=== PATIENT | male | born 1965 | race Caucasian/White ===

== ENCOUNTER → 2016-11-24 | Outpatient (CLI) | payer OTHER ==
[~2016-11-24] MED LIST: ATOR-22 PO
--- NOTE | 2016-11-25 08:09 | PAP/PSG TECHNICIAN REPORT ---
[facility] Manager Internship Polysomnogram Report Study name: None Report date: 11/25/2016 Study date: 11/24/2016 Referring Physician: DR. MARQUES VAUGHN Name: GROVER ELLER Interpreting Physician: Lino Jernigan D.O. Date of : 1965 Manager Internship: Christina Hooker, PSGT. Sex: Male Age: 51 StudyType: PSG Weight: 210 lbs Height: 51 years, Height 5' 10" BMI: 30.13 Medications: Atrovastatin 20 mg, Multi Complete Oral. Patient History 51 yr. old, male in room 7, presents to the sleep lab for a diagnostic c-pap titration. Pt. has used c-pap for several years and wants to make sure his pressure is correct. Parameters Monitored NPSG: E1-M2, E2-M1, Fp1-M2, Fp2-M1, F3-M2, F4-M2, F4-M1, C3-M2, C4-M2, C4-M1, O1-M2, O2-M2, O2-M1, T3-M2, T4-M1, P3-M2, P4-M1, CHIN1, CHIN2, HR, EKG, Legs, PFLOW, SNOR, FLOW, CFLOW, Tidal Volume, THOR, ABDO, SpO2, PLTH, CPRESS, ETCO2 Wave, ETCO2, pH Sleep Architecture Sleep Stages Time at Lights Off 10:46:58 PM STAGES Time (min.) TST (%) Time at Lights On 5:24:58 AM Wake 65.5 -- Total Recording Time (TRT) 399.50 min. N1 23.0 7 Total Sleep Period (TSP) 376.5 min. N2 227.5 68 Total Sleep Time (TST) 332.5min. N3 0.0 0 Awake Time 65.5 min. REM 82.0 25 Wake after Sleep Onset 44.0 min. Sleep Efficiency (SE) 84 % Sleep Onset Latency (SHANNON) 21.5 min. Number of Stage 1 Shifts None Awakenings 8 Stage Changes 35 Number of REM periods 7 REM 82.0 25 REM Latency 76.5 min. NREM 250.5 75 Body Position Analysis Supine Right Left Side Prone Vertical Total Sleep Time (min.) 90.4 130.2 112.7 242.92 0.0 0.0 Total Sleep Time (%) 27% 39% 34% 73 0% N/A% Total Sleep Time REM (min.) 15.6 49.0 17.4 None 0.0 0.0 Total Sleep Time NREM (min.) 74.0 81.2 95.3 None 0.0 0.0 Intermittent Wake (min.) 0.9 19.4 45.2 None 0.0 0.0 Total Sleep Period (%) 24% None None None None None Arousals Myoclonus (PLM) * Events Count Index Events Count Index Spontaneous 35 6 Events Awake (PLMW) 4 3.7 Respiratory 1 0.2 Events Asleep w/ Arousal (PLMA) 9 1.6 PLM 9 2 Events Asleep w/o Arousal (PLMS) 165 29.8 Snoring 2 0 Total Asleep 174 31.4 Total 47 8 Total 178 27 Respiratory Analysis * CA OA MA CH H RERA Total Count 1 0 0 0 6 0 7 Index 0.2 0.0 0.0 0 1.1 0 1.3 Mean Duration 24.3 0.0 0.0 0.00 18.8 0.0 19.6 Longest Duration 24.3 0.0 0.0 0.00 0.0 0.0 29.2 Respiratory Event Summary Total Supine ~Supine Right Left Prone REM NREM Apneas Count 1 0 1 0 1 N/A 0 1 Index 0.2 0 0 0.0 0.5 N/A 0 0 Hypopneas (4% Desat) Count 6 2 4 0 4 N/A 1 5 Index 1.1 1.3 1 0.0 2.1 N/A 0.7 1.2 Apneas & All Hypopneas Count 7 2 5 0 5 N/A 1 6 Index 1.3 1 1 0 3 N/A 0.7 1.4 Respiratory Events (Clipper Machine Operator+All Hyp+RERA) Count 7 2 5 0 5 N/A 1 6 Index 1.3 1 1 0.0 2.7 N/A 0.7 1.4 Respiratory Related Arousal Count 1 2 0 0 0 N/A 0 1 Index 0.2 1 0 0 0 N/A 0 0 Snoring Analysis Supine Right Left Prone REM NREM Total Snore duration 6.5 min Snores count 171 23 25 N/A 18 201 219 Snore mean duration 1.8 Sec Snores index 115 11 13 N/A 13.2 48.1 39.5 TST with snoring (%) 1.9% Desaturation Event Summary: Minimum %SpO2 Event Count Mean/Min/Max Duration(sec.) Desaturation Index % Time In Bed > 90 8 22.4 / 5.5 / 58.3 1.2 98.7 86 - 90 1 55.3 / 55.3 / 55.3 11.6 1.3 81 - 85 0 N/A 0.0 0.0 76 - 80 0 N/A 0.0 0.0 71 - 75 0 N/A 0.0 0.0 66 - 70 0 N/A 0.0 0.0 61 - 65 0 N/A 0.0 0.0 56 - 60 0 N/A 0.0 0.0 51 - 55 0 N/A 0.0 0.0 < 50 0 N/A 0.0 0.0 Total REM NREM Awake <50% 0.0 min. 0.0 min. 0.0 min. 0.0 min. 51 - 60% 0.0 min. 0.0 min. 0.0 min. 0.0 min. 61 - 70% 0.0 min. 0.0 min. 0.0 min. 0.0 min. 71 - 80% 0.0 min. 0.0 min. 0.0 min. 0.0 min. 81 - 90% 5.2 min. 0.2 min. 3.9 min. 1.2 min. 91 - 100% 392.4 min. 81.8 min. 246.5 min. 64.0 min. Average 94 95 93 94 Minimum SpO2 85 90 85 88 Desaturation Event Index 1.4 1.5 1.7 0.0 # Desat. Events below 89% 1 N/A 1 N/A Time(%) with Saturation below 89% 0.3 0.0 0.2 0.1 Time(min.) with Saturation below 89% 1.0 0.0 0.8 0.2 Time (mins) REM (mins) NREM (mins) % of TST SpO2 Below 90% 4 1 N3 0.4 SpO2 Below 88% 1 0 0 0 Heart Rate Analysis Min (bpm) Max (bpm) Average (bpm) Awake 58 98 71 NREM 57 92 68 REM 58 104 71 Overall 57 104 69 Supplemental O2 Values Minimum O2 level: None Value Start Time End Time Manager Internship Comments PAP Study: Mr. Eller slept in the right, left, and supine positions. No cardiac arrhythmia or PLM's noted. No bruxism noted. CPAP was initiated at +8 CMH2O and up-titrated to an optimal level of +12 CMH2O, which nearly eliminated all respiratory events and snoring. Pt. brought his own F & P mask. Was used for titration. Mr. Eller awoke to use the restroom zero times during the night. stated, I did not sleep as well as I do when I am in my own bed. The final report will be interpreted and signed by a sleep physician. The completed physician report will then be placed in the patient medical record. Pt. slept pretty well, tolerated treatment and mask well. Pt. has been on 12 cm for many years wanted sleep study to make sure his pressure was correct. Study was started at 8 cm and increases were made for respiratory and snoring events. Therapy Event: Therapy (cm H20) 0 8 10 12 Total Time at Pressure (min.) 0.3 144.1 42.4 211.2 TST at Pressure (min.) 0.0 92.9 42.4 197.2 # Periods 1 1 1 1 Sleep Onset (min.) N/A 21.2 0.0 0.0 REM Onset (min.) N/A 97.7 N/A 2.7 Sleep Efficiency % 0 64 100 93 Wakefulness (%) 100.0 35.5 0.0 6.6 Wakefulness (min.) 0.3 51.2 0.0 14.0 NREM 1 (%) 0.0 6.2 0.0 6.6 NREM 1 (min.) 0.0 9.0 0.0 14.0 NREM 2 (%) 0.0 50.9 100.0 52.9 NREM 2 (min.) 0.0 73.4 42.4 111.7 NREM 3 (%) 0.0 0.0 0.0 0.0 NREM 3 (min.) 0.0 0.0 0.0 0.0 REM (%) 0.0 7.3 0.0 33.9 REM (min.) 0.0 10.5 0.0 71.5 # Arousals N/A 16 5 26 Arousal Index N/A 10.3 7.1 7.9 # Snore N/A 120 55 44 Snore Index N/A 77.5 77.9 13.4 AHI N/A 1.3 0.0 1.5 AHI Supine N/A 3.8 0.0 0.0 AHI Non-Supine N/A 0.0 N/A 1.7 NREM AHI N/A 1.5 0.0 1.9 REM AHI N/A 0.0 N/A 0.8 RDI N/A 1.3 0.0 1.5 # Obstructive N/A 0 0 0 # Central Ap N/A 0 0 1 # Mixed N/A 0 0 0 # Hypopneas N/A 2 0 4 RERAS N/A 0 0 0 Total Respiratory Events N/A 2 0 5 Time Below SpO2 89.00% (min.) 0.0 0.8 0.0 0.0 Mean NREM SpO2 (%) N/A 92 92 95 Mean REM SpO2 (%) N/A 93 N/A 95 Mean Sleep SpO2 (%) N/A 93 92 95 Min NREM SpO2 (%) N/A 85 90 90 Min REM SpO2 (%) N/A 91 N/A 90 Position Supine (min.) 0.0 31.4 42.4 15.8 Position Non-supine (min.) 0.0 61.5 0.0 181.4 LM Index Sleep N/A 40.7 58.0 21.3 LM Index NREM N/A 43.0 58.0 14.8 LM Index REM N/A 22.9 N/A 32.7 Mean Heart Rate (bpm) N/A 71 69 67 Min Heart Rate (bpm) N/A 61 62 57
--- NOTE | 2016-11-28 14:53 | POLYSOMNOGRAPH REPORT ---
CLINICAL DATA: The patient is referred for a CPAP re-titration. He has been on CPAP for many years. Initially he had severe apnea with an apnea hypopnea index of 42.7. His most recent CPAP titration was 10/21/2007 with a reported pressure setting of 13 cm. The patient reportedly is on 12 cm at present. His BMI is 30.13. This was an in-lab CPAP titration. SLEEP ARCHITECTURE: The total sleep period was 376.5 minutes with a total sleep time of 332.5 minutes. The sleep efficiency was mildly reduced at 84%. The sleep onset latency was top normal at 21.5 minutes. The wake after sleep onset was 44 minutes. The REM latency was normal at 76.5 minutes. Sleep consisted of stage N1 7%, stage N2 68%, stage N3 zero, stage REM 25%. AROUSAL DATA: The patient had a total of 47 arousals including 35 spontaneous arousals, 1 respiratory arousal, 9 PLM arousals, and 2 snoring arousals. The arousal index was 8. PLM DATA: The patient had a total of 174 periodic limb movements of sleep for an index of 31.4. There were 9 limb movements with arousals for a PLM arousal index of 1.6. EKG: The underlying cardiac rhythm was normal sinus. The cardiac rates ranged from 58-104 beats per minute. The average heart rate was 71 beats per minute. During Epoch 409, the patient had a 6-beat run of extrasystoles. It was unclear if this was SVT or VT. This did occur during REM sleep. Otherwise, he had normal sinus rhythm. RESPIRATORY DATA: The patient's nocturnal events were treated with nasal CPAP. For the night he had 1 central apnea and 6 hypopneas. The 4% rule was utilized for scoring hypopneas. The apnea hypopnea index was normal at 1.3 events per hour. The apnea was 24.3 seconds. The mean hypopnea was 18.8 seconds. OXIMETRY DATA: The average saturation for the night was 94%. The minimum saturation was 85% and this was very transient. He had a total of 1 minute with saturations less than 89%. CERTIFIED ENDOSCOPY TECHNICIAN'S COMMENTS: The patient slept in the right, left, and supine positions. No bruxism was noted. CPAP was initiated at 8 cm and up-titrated to an optimal level of 12 cm which nearly eliminated all respiratory events and snoring. The patient used his own Lutz and Paykel mask. IMPRESSION: 1. Obstructive sleep apnea -- well treated with nasal CPAP at 12 cm. 2. Periodic limb movement disorder. 3. Cardiac arrhythmia. COMMENTS: The patient was titrated up to his final pressure of 12 cm which is reportedly what he is already utilizing at home. For the most part, his sleep was well consolidated especially after the first hour. He did have a modest number of limb movements. There were relatively few arousals associated with the limb movements. His oxygenation was essentially normal. He did have one 6 beat burst of arrhythmia. It could not be determined if this was SVT or ventricular tachycardia. Clinical correlation is advised with regard to his cardiac status. RECOMMENDATIONS: 1. It is advised that the patient continue with his nasal CPAP at 12 cm. 2. He has an elevation of body mass index at 30.13. Weight reduction is advised as even mild weight reduction may result in improvement in sleep disordered breathing. 3. If possible patient should avoid sleeping in the supine position. 4. Consideration is given to Holter monitor if clinically indicated. [facility]
== END | disposition home or self-care (01) ==
LOC: C.NEUR 21:00
PROVIDERS: ATTEND Internal Medicine Critical Care Medicine
DX: G47.30 Sleep apnea, unspecified (principal)

== ENCOUNTER 2021-11-18 10:34 | Inpatient (IN) ==
--- NOTE | 2021-10-30 15:17 | PAT Medication Instructions ---
Medication Instructions Date of Service October 30, 2021 Home Medications multivitamin (Daily Multi-Vitamin) 1 tab PO DAILY atorvastatin 10 mg tablet 10 mg PO HS DO NOT take the morning of surgery multivitamin (Daily Multi-Vitamin) 1 tab PO DAILY Take evening before surgery atorvastatin 10 mg tablet 10 mg PO HS OTHERWISE NOTHING TO EAT OR DRINK AFTER MIDNIGHT Other Notes If you have any questions please call us at [phone] or [phone] or [phone] or [phone]
--- NOTE | 2021-11-04 13:37 | Anesthesiology Consultation ---
Date of Service November 04, 2021 Assessment & Plan (1) Encounter for pre-operative examination: COVID screening: Per assessment on 11/04: No known COVID-19 positive contacts or current COVID-19 related symptoms. Travel screen negative. Patient vaccinated. Surgeon arranging preop COVID testing. Awaiting results. Chart Review Chart Review: Acceptable Risk for Surgery and Patient seen in Pre Admission Testing Teaching & Discussion Pre-Anesthesia Teaching/Discussion Notes: Instructed NPO after midnight before surgery,except medications with 15 cc of water. Medication instructions pro vided according to the PAT guidelines. History Surgery Operation Date: 11/18/21 10:05 Proposed Procedures p L4-S1 Decompression Fusion, Spinal Cord Monitoring - Ghassan Erickson, Height/Weight Height: 5 ft 10.5 in Weight: 105.1 kg Allergies Allergy/AdvReac Type Severity Reaction Status Date / Time No Known Allergies Allergy Unknown Verified 10/30/21 14:05 Medications Home Medications Medication Instructions Recorded Confirmed Last Taken multivitamin (Daily Multi-Vitamin) 1 tab PO DAILY 09/03/20 10/30/21 Unknown atorvastatin 10 mg tablet 10 mg PO HS 10/30/21 10/30/21 Unknown Past Medical History Medical History Degenerative disc disease Hyperlipidemia Obesity Sleep apnea CPAP (compliant) Spinal stenosis Exercise / Class Metabolic Activity II 4-5 Yardwork/Stairs/Walk up hill (one FS (no CP, no SOB)) Past Family History Family History Other No family history of adverse response to anesthesia Past Surgical History Surgical History H/O elbow surgery RT H/O lumbar discectomy L4-5 H/O sinus surgery History of colonoscopy History of inguinal hernia repair, bilateral History of tooth extraction Nausea and vomiting after administration of anesthetic agent Past Anesthesia History No Hx of Anesthesia Complications (except post-op nausea) and No Family Hx of Anesthesia Complications History of PONV No Hx of Motion Sickness and History of PONV (post-op nausea) Social History Smoking Status: Never smoker Do You Dip or Chew Tobacco: No Hx Alcohol Use: No Hx Substance Use: No substance use type: does not use Review of Systems Patient denies chest pain, shortness of breath, dyspnea on exertion, fever, chills, cough, wheezing, palpitations. Physical Exam Vital Signs VITALS BP 121/73 P 90 TEMP 98.7 SP02 97%RA RESP 16 PHYSICAL Full cervical extension range of motion. Full TMJ range of motion. TMD 3 finger breaths Mallampati Score 1 Dentition: missing molar Lungs: clear throughout to auscultation Cardiac: regular rate and rhythm, no murmurs noted Spine: normal Carotid arteries: negative bruit Extremities: no edema Lab Results Anesthesia Preop Results Results Anesthesia Widget: WBC 6.67 K/uL (4.8-10.8) 11/04/21 Hgb 15.1 g/dL (14.0-18.0) 11/04/21 Hct 43.7 % (42-52) 11/04/21 Plt 226 K/uL (130-400) 11/04/21 Na 141 mmol/L (136-145) 11/04/21 K 3.9 mmol/L (3.5-5.1) 11/04/21 Cl 106 mmol/L (98-107) 11/04/21 CO2 29 mmol/L (21-32) 11/04/21 BUN 19 mg/dl (6-23) 11/04/21 Creat 0.91 mg/dl (0.6-1.4) 11/04/21 Glucose Level 95 mg/dl (70-99(Fasting)) 11/04/21 PT 10.8 Seconds (9.0-12.0) 11/04/21 PTT 26.8 Seconds (21.0-31.0) 11/04/21 INR 1.0 (0.9-1.1) 11/04/21 Urine Color Yellow 11/04/21 Urine Appearance Clear (Clear) 11/04/21 Urine pH 5.0 (4.5-7.5) 11/04/21 Urine Specific [place] 1.026 (1.000-1.030) 11/04/21 Urine Protein Negative (Negative) 11/04/21 Urine Glucose (UA) Negative (Negative) 11/04/21 Urine Ketones Trace (Negative) H 11/04/21 Urine Blood Negative (Negative) 11/04/21 Urine Nitrite Negative (Negative) 11/04/21 Urine Bilirubin Negative (Negative) 11/04/21 Urine Urobilinogen Negative (Negative) 11/04/21 Urine Leukocyte Esterase Negative (Negative) 11/04/21 Blood Type A Positive 11/04/21 Antibody Screen NEGATIVE 11/04/21 Testing Electrocardiogram Date: 11/04/21 NSR at 73bpm. unconfirmed report. Chest X-Ray Date: 11/04/21 FINDINGS: PA and lateral chest radiographs are obtained. No prior studies are available for comparison at the time of dictation. The cardiomediastinal silhouette is unremarkable. There is bibasilar atelectasis. The lungs and pleural spaces are otherwise clear. There is no pneumothorax. The bony thorax appears intact. IMPRESSION: No active disease in the chest.
[~2021-11-18 10:34] MED LIST changes: +ACETAMINOPHEN 500 MG TAB PO SCH; -ATOR-22 PO; +CeleBREX 200 MG CAP PO SCH; +GABAPENTIN 600 MG DOSE PO SCH; +LR 15ML/HR IV SCH; +ceFAZolin 2000MG 2,000 MG/15 ML SYR IV SCH
[2021-11-18] MEDS ORDERED: fentaNYL citrate 100 MCG/2 ML VIAL ONE (10:45)
[2021-11-18] MEDS ORDERED: MIDAZOLAM HCL 1 MG/ML 2ML VIAL ONE (10:45)
[2021-11-18] MEDS ORDERED: HYDROmorphone INJ 2 MG/ML SYR/VIAL IV PRN (11:44)
[2021-11-18] MEDS ORDERED: ATROPINE SULFATE 0.1 MG/ML 10ML SYR IV PRN (11:44)
[2021-11-18] MEDS ORDERED: ePHEDrine sulfate 50 MG/ML AMP IV PRN (11:44)
[2021-11-18] MEDS ORDERED: ONDANSETRON INJ 2 MG/ML 2 ML VIAL IV PRN ×2 (11:44→19:50)
--- NOTE | 2021-11-18 11:46 | History & Physical Bridge Note ---
Date of Service November 18, 2021 History & Physical Bridge Note I have examined the patient, reviewed the History & Physical and in the interval since the performance of the History & Physical I have noted the following changes of clinical significance: no changes noted
--- NOTE | 2021-11-18 11:47 | History & Physical Report ---
Date of Service November 18, 2021 Assessment & Plan (1) Neurogenic claudication due to lumbar spinal stenosis: Plan: L4-S1 decompression and fusion History of Present Illness Chief Complaint: Back and leg pain Primary Care Provider: Inder Newell DO This is a 56-year-old male who presents with a history of chronic persistent back and leg pain that is progressively worsened. The failing since course of nonoperative care is here for surgical invention. Allergies Allergy/AdvReac Type Severity Reaction Status Date / Time No Known Allergies Allergy Unknown Verified 11/18/21 10:52 Home Medications Medication Instructions Recorded Confirmed Type multivitamin (Daily Multi-Vitamin) 1 tab PO DAILY 09/03/20 11/18/21 History atorvastatin 10 mg tablet 10 mg PO HS 10/30/21 11/18/21 History ibuprofen 200 mg tablet 800 mg PO Q6H PRN 11/18/21 11/18/21 History Past Med/Surg History Medical History Degenerative disc disease Hyperlipidemia Obesity Sleep apnea CPAP (compliant) Spinal stenosis Surgical History H/O elbow surgery RT H/O lumbar discectomy L4-5 H/O sinus surgery History of colonoscopy History of inguinal hernia repair, bilateral History of tooth extraction Nausea and vomiting after administration of anesthetic agent Family History Other No family history of adverse response to anesthesia Social History Smoking Status: Never smoker Second Hand Exposure: Yes ( A CHILD); Do You Dip or Chew Tobacco: No; Hx Alcohol Use: No Hx Substance Use: No Preferred Language: Surinamese Water Softener Servicer And Installer Required: No Beliefs That Will Affect Care: None Current Living Situation: Family Feels Safe at Home: Yes Safety Concerns: Feels Safe At This Time Assistive Devices: CPAP and Glasses Physical Exam Physical Exam: Patient is alert and oriented Heart regular in rhythm Lungs clear Results & Data Results & Data ([facility]) Vital Signs (Past 12 Hours) Vital Signs Temp Pulse Resp BP Pulse Ox 11/18/21 10:56 36.9 C 78 18 137/87 96
[2021-11-18] MEDS ORDERED: BUPIVACAINE/EPINEPHRINE 0.25% 1:200,000 30 ML VIAL ONE (12:04)
[2021-11-18] MEDS ORDERED: ceFAZolin 330 MG/ML 1 GM VIAL ONE (12:04)
[2021-11-18] MEDS ORDERED: SCOPOLAMINE 1 MG TDSY TD ONE (12:21)
[2021-11-18] MEDS ORDERED: FAMOTIDINE/PF 20 MG/2 ML VIAL IV ONE (12:43)
[2021-11-18] MEDS ORDERED: HYDROmorphone INJ 2 MG/ML SYR/VIAL ONE (12:47)
[2021-11-18] MEDS ORDERED: KETAMINE 50 MG/5 ML SYRINGE ONE (12:50)
[2021-11-18] MEDS ORDERED: FLOSEAL HEMOSTATIC MATRIX 10ML TOP ONE (13:03)
[2021-11-18] MEDS ORDERED: ONDANSETRON INJ 2 MG/ML 2 ML VIAL ONE (13:41)
[2021-11-18] MEDS ORDERED: diphenhydrAMINE 50 MG/ML VIAL ONE (13:41)
[2021-11-18] MEDS ORDERED: DEXAMETHASONE SOD INJ 4 MG/ML VIAL ONE (13:41)
[2021-11-18] MEDS ORDERED: METOCLOPRAMIDE HCL INJ 5 MG/ML 2 ML VIAL ONE (13:41)
[2021-11-18] MEDS ORDERED: LARYING-O-JET KIT (LTA) ONE (13:41)
[2021-11-18] MEDS ORDERED: GLYCOPYRROLATE 0.2 MG/ML VIAL ONE (13:41)
[2021-11-18] MEDS ORDERED: PROPOFOL IV EMULSION 10 MG/ML 20 ML VIAL IV ONE (13:41)
[2021-11-18] MEDS ORDERED: NEOSTIGMINE METHYLSULFATE 1 MG/ML 10ML VIAL ONE (13:41)
[2021-11-18] MEDS ORDERED: LIDOCAINE 2% 2 ML VIAL/AMP(20MG/ML) INFIL ONE (13:41)
[2021-11-18] MEDS ORDERED: SUGAMMADEX SODIUM 200 MG/2 ML VIAL IV ONE (14:56)
--- NOTE | 2021-11-18 15:04 | Operative Report ---
Post Operative Report Pre & Post Diagnosis Operation Date: 11/18/21 12:15 Pre-Op Diagnosis: (1) Neurogenic claudication due to lumbar spinal stenosis Post-Op Diagnosis: (1) Neurogenic claudication due to lumbar spinal stenosis I identified the patient and participated in the time-out.: Yes Procedure Operation Date: 11/18/21 12:15 Actual Procedures #1 revision decompression with bilateral medial facetectomies and foraminotomies L3-L4 L4-5 L5-S1. #2 posterior spinal fusion L4-L5 L5-S1. #3 placement posterior instrumentation L4-L5 L5-S1. #4 interbody fusion L4-L5 L5-S1. #5 placement of Spira 11 x 26 mm cage at L4-5 and 12 x 26 mm cage L5-S1. #6 placement locally harvested morselized autograft in the posterior gutters. #7 placement of I factor combined with V toss in the posterior lateral gutters and interbody space. Surgeon Ghassan Erickson, Movie Critic Nahomi Hernandez Estimated Blood Loss 400 Findings Consistent with Post-Op Diagnosis The patient is 5 foot 10 inches tall weighing over 106 kg with a BMI in excess of 33. The patient's body habitus did contribute to significant technical difficulty required deepest retractors and longer instruments in order to perform his procedure. This at least 50% increased operative time. Specimens None Indications This is a 56-year-old male who presents with significant decline in status with significant back and worsening leg pain after failing course of nonoperative care is here for surgical invention. Description of Procedure Patient was met with identified informed consent obtained. Patient was then taken to the operative suite underwent a patient placed in a prone position the [place] table top Román frame. All bony prominences well-padded eyes inspected to ensure no external pressure placed upon them. This point the lumbar spine was prepped and draped in a sterile fashion. Sharp dissection with assistance pericardial form down to and exposing very remaining lamina and transverse processes of L4-5 and sacral ala bilaterally. From caudal cephalad fashion revision complete laminectomy of all 5 L4 and partial laminectomy L3 was performed including medial facetectomies and foraminotomies addressing severe spinal stenosis. Pedicle screws were then placed in L4-L5 and S1 levels bilaterally with assistance of fluoroscopy the proper sized raimundo placed. By way of a transit foraminal approach on the right complete discectomy of L5-S1 was performed endplates curetted to subcortical bleeding bone and a 12 x 26 mm Spira cage filled I factor tapped in position. Then proceeded to L 4 L5 and again by way of a transit foraminal approach and right complete discectomy was performed endplates curetted to subcortical being bone and the 11 x 26 mm spiral cage filled with I factor tapped in position. Rods were then locked in final position bilaterally. The transverse processes of L4-L5 and sacral ala burred to subcortical bleeding bone. I factor model V toss and locally harvested morselized autograft was placed in the posterior gutters. 15 round LUZ drain inserted. The incision was then closed with 1 Vicryl the fascia 2-0 Vicryl subcutaneously and 4 Monocryl for final skin closure. Steri-Strip sterile dressings placed. Patient waken taken PACU stable condition. Please note spinal cord monitoring was utilized at the procedure no changes noted. Lastly Nahomi Hernandez was present out the entire surgery and while the patient positioning complex portions of the surgery and final skin closure. I attest to the content of the Intraoperative Record and any orders documented therein. Any exceptions are noted below.
--- NOTE | 2021-11-18 15:11 | Fluoroscopy Report ---
FL lumbar spine 2-3V CLINICAL HISTORY: L4-S1 DECOMPRESSION AND FUSION TECHNIQUE: 2 views were obtained with the C-arm in the OR with the above procedure. Total fluoroscopy time was 30.3 seconds. Total skin dose was 23.4 mGy. Comparison: None available at the time of this dictation. FINDINGS/IMPRESSION: Intraoperative images were obtained of L4-S1 decompression and fusion. Please correlate with intraoperative fluoroscopy and operative report. ACT 112: Negative or not required by law. Electronically signed by: Justin Wilson M.D. 11/18/2021 3:10 PM
[2021-11-18] MEDS: fentaNYL citrate 100 MCG/2 ML VIAL IV PRN ×3 (15:44→16:36)
--- NOTE | 2021-11-18 16:22 | Anesthesiology Progress Note ---
Date of Service November 18, 2021 Anesthesia Post Procedure Vital Signs Vital Signs: Temp Pulse Pulse Resp BP Pulse Ox 11/18/21 16:15 83 16 152/92 H 93 11/18/21 16:05 81 19 155/91 H 96 11/18/21 15:55 79 13 164/97 H 97 11/18/21 15:45 81 13 144/92 H 96 11/18/21 15:35 79 14 127/89 96 11/18/21 15:25 85 13 154/98 H 95 11/18/21 15:19 97.2 F L 86 15 141/101 H 96 11/18/21 10:56 98.4 F 78 18 137/87 96 Pain Intensity Back: Pain Intensity: 6 Transfer of Care Handoff Completed per policy Notes Mental Status: alert / awake / arousable and participated in evaluation Patient Amnestic to Procedure: Yes Nausea / Vomiting: adequately controlled Pain: adequately controlled Airway Patency, RR, SpO2: stable & adequate BP & HR: stable & adequate Hydration State: stable & adequate Anesthetic Complications: no major complications apparent and Pt Satisfied with anesthetic care
[2021-11-18] MEDS ORDERED: ALUMINUM/MAGNESIUM SUSP 30 ML UDC PO PRN (19:50)
[2021-11-18] MEDS ORDERED: LORazepam 0.5 MG TAB PO PRN (19:50)
[2021-11-18] MEDS ORDERED: SOD PHOSPHATE/SOD BIPHOSPHATE ENEMA 132 ML BTL PR PRN (19:50)
[2021-11-18] MEDS ORDERED: HYDROmorphone INJ 1 MG/ML SYRINGE IV PRN (19:50)
[2021-11-18] MEDS ORDERED: PROMETHAZINE HCL 12.5 MG in SODIUM CHLORIDE 0.9% 50 ML IV PRN (19:50)
[2021-11-18] MEDS ORDERED: ACETAMINOPHEN 1,000 MG/100 ML VIAL IV PRN (19:50)
[2021-11-18] MEDS ORDERED: LORazepam 2 MG/1 ML VIAL IV PRN (19:50)
[2021-11-18] MEDS ORDERED: ONDANSETRON 4 MG OD TAB PO PRN (19:50)
[2021-11-18] MEDS ORDERED: traMADol HCL 50 MG TABLET PO PRN (19:50)
[2021-11-18] MEDS ORDERED: MAGNESIUM HYDROXIDE SUSP 30 ML UDC PO PRN (19:50)
[2021-11-18] MEDS ORDERED: diphenhydrAMINE Capsule 25 MG CAP PO PRN (19:50)
[2021-11-18] MEDS ORDERED: FAMOTIDINE 20 MG TAB PO PRN (19:50)
[2021-11-18] MEDS ORDERED: DO NOT ADMINISTER PNEUMOCOCCAL VACCINE PRN (19:50)
[2021-11-18] MEDS ORDERED: hydrOXYzine HCl 25 MG TAB PO PRN (19:50)
[2021-11-18] MEDS ORDERED: DO NOT ADMINISTER FLU VACCINE PRN (19:50)
[2021-11-18] MEDS ORDERED: NALOXONE HCL 0.4 MG/1 ML VIAL/CARP IV PRN (19:50)
[2021-11-18] MEDS ORDERED: bisacodyL 10 MG SUPP PR PRN (19:50)
[2021-11-18] MEDS ORDERED: ACETAMINOPHEN 500 MG TAB PO PRN (19:50)
[2021-11-18] MEDS ORDERED: LACTATED RINGER'S 1,000 ML IV SCH (19:50)
[2021-11-18] MEDS ORDERED: HYDROmorphone INJ 0.5 MG/0.5 ML SYR IV PRN (19:50)
[2021-11-18] MEDS ORDERED: METOCLOPRAMIDE HCL INJ 5 MG/ML 2 ML VIAL IV PRN (19:50)
[2021-11-18] MEDS: ceFAZolin 2000MG 2,000 MG/15 ML SYR IV SCH (22:00)
[2021-11-18] MEDS: oxyCODONE HCL IR 5 MG TAB (IMMEDIATE RELEASE) PO PRN (22:00)
[2021-11-18] MEDS: ATORVASTATIN 10 MG TAB PO SCH (22:00)
[2021-11-18] MEDS: DOCUSATE SODIUM/SENNA 50/8.6MG TAB PO SCH (22:01)
[2021-11-19] MEDS: ceFAZolin 2000MG 2,000 MG/15 ML SYR IV SCH (05:21)
[2021-11-19] MEDS: POLYETHYLENE (MIRALAX) 17 GM PACK PO SCH ×4 (05:21→23:53)
[2021-11-19] MEDS: oxyCODONE HCL IR 5 MG TAB (IMMEDIATE RELEASE) PO PRN ×5 (05:30→23:53)
[2021-11-19 06:17] LABS: Basophils # (auto) 0.02 K/uL (0-0.2); Basophils % (auto) 0.1 %; Eosinophils # (auto) 0.01 K/uL (0-0.5); Eosinophils % (auto) 0.1 %; Hemoglobin 13.4 g/dL (14.0-18.0); Immature Granulocytes # (auto) 0.04 K/uL (0.00-0.02); Immature Granulocytes % (auto) 0.3 %; Lymphocytes # (auto) 0.76 K/uL (1.2-3.4); Lymphocytes % (auto) 5.4 %; Mean Corpuscular Hemoglobin 30.5 pg (25-34); Mean Corpuscular Hgb Conc 35.3 g/dL (32-36); Mean Corpuscular Volume 86.6 fL (80-100); Mean Platelet Volume 10.1 fL (7.4-10.4); Monocytes # (auto) 0.66 K/uL (0.11-0.59); Monocytes % (auto) 4.7 %; Neutrophils # (auto) 12.67 K/uL (1.4-6.5); Neutrophils % (auto) 89.4 %; Platelet Count 237 K/uL (130-400); RDW Coefficient of Variation 13.4 % (11.5-14.5); RDW Standard Deviation 42.6 fL (36.4-46.3); Red Blood Count 4.39 M/uL (4.7-6.1); White Blood Count 14.16 K/uL (4.8-10.8)
[2021-11-19 06:59] LABS: BUN Creatinine Ratio 16.5 (10-20); Calcium 8.4 mg/dl (8.5-10.1); Creatinine Clr Calc Pharmacy 110.2 ml/min; Est GFR (African American) 107.3 ml/min; Est GFR (Non-African American) 92.6 ml/min
[2021-11-19] MEDS: dexAMETHasone 6 MG in SYRINGE 0 ML IV SCH (07:46)
[2021-11-19] MEDS: MULTIVITAMIN TAB PO SCH (07:46)
--- NOTE | 2021-11-19 10:25 | Orthopedic Progress Note ---
Date of Service November 19, 2021 Assessment & Plan (1) Neurogenic claudication due to lumbar spinal stenosis: Plan: At this time initiate physical therapy monitor his LUZ operatively discharge home in the next few days. Admission and Anticipated Discharge Date Admission Date: November 18, 2021 Subjective Back pain controlled leg pain markedly improved Physical Exam Physical Exam: Patient is in bed. Appears comfortable. Is good strength testing. Results & Data ([facility]) Vital Signs (Past 12 Hours) Vital Signs Temp Pulse Resp BP Pulse Ox 11/19/21 07:36 36.5 C 81 14 111/69 93 11/19/21 05:31 92 11/19/21 03:08 98 11/19/21 02:04 36.6 C 76 12 123/69 96
[2021-11-19] MEDS: DOCUSATE SODIUM/SENNA 50/8.6MG TAB PO SCH (20:13)
[2021-11-19] MEDS: ATORVASTATIN 10 MG TAB PO SCH (20:13)
[2021-11-20] MEDS: POLYETHYLENE (MIRALAX) 17 GM PACK PO SCH ×2 (04:33→11:17)
[2021-11-20] MEDS: MULTIVITAMIN TAB PO SCH (08:38)
[2021-11-20] MEDS: dexAMETHasone 6 MG in SYRINGE 0 ML IV SCH (08:39)
--- NOTE | 2021-11-20 08:50 | Discharge Summary ---
Date of Service November 20, 2021 Admission HPI Per Admitting Provider This is a 56-year-old male who presents with a history of chronic persistent back and leg pain that is progressively worsened. The failing since course of nonoperative care is here for surgical invention. Principal Diagnosis Lumbar spinal stenosis with radiculopathy Discharge Data Allergies Allergy/AdvReac Type Severity Reaction Status Date / Time No Known Allergies Allergy Unknown Verified 11/18/21 10:52 Procedures Performed Operation Date: 11/18/21 12:15 Actual Procedures p L4-S1 Decompression Fusion, Spinal Cord Monitoring(Not Applicable) - Ghassan Erickson DO Ordered Studies 11/18/21 12:15 [place] lumbar spine 2-3V Routine Hospital Course (1) Neurogenic claudication due to lumbar spinal stenosis: Patient underwent lumbar decompression fusion tolerated so was taken to orthopedic floor postoperative. Postop day 1 is up and ambulating progressed to postop day or 2. Pain well controlled. Excellent strength testing. Separately discharged home. Discharge orders instructions found in chart for further review. Total Time Total Time Spent Total Time Spent (In Minutes): 20 minutes Discharge Plan Discharge Items Patient Disposition: Home - Self-Care Reason For Visit: Spinal Stenosis of Lumbar Region with Radiculopath Discharge Diagnosis: Lumbar spinal stenosis with radiculopathy Activity: As commented below Non-emergency contact: Primary Care Provider Call non-emergency contact if: you have any medication questions Follow-up/Referrals: Inder Newell DO [Primary Care Provider] - Diet: Regular Addtl Attending Provider Instructions: ACTIVITY RECOMMENDATIONS: SELF CARE INSTRUCTIONS AFTER THORACIC/LUMBAR FUSIONS 1. You may walk to your tolerance. It is good exercise for your legs and back. Expect some back and intermittent leg aches and pains. 2. You may perform "counter-top" level activities (make a sandwich, daniela with a project, etc.). 3. No bending or lifting of more than 10 pounds or back twisting of any nature (roll like a log when turning in bed). 4. You may ride in a car for 20-30 minutes at a time. No driving until after your first visit with your doctor. 5. Frequent changes of position and restricting sitting to 30 minutes at a time will help limit the amount of back spasms and stiffness you may experience. 6. You may discontinue the use of ambulatory aids (cane, crutches, etc.) once your strength and confidence allow. 7. You may civil engineering director the shower and let water strike your incision when you arrive home at least once daily. Do not take a tub bath, sit in a hot tub or go into a swimming pool until after your first recheck in the office. SPECIAL CARE INSTRUCTIONS: VERY IMPORTANT TO READ AND REVIEW A. Your surgical incision has been closed with a cosmetic suture under the skin that will dissolve in about 6 weeks. In 14 days, you can use a pair of clean scissors and cut the suture that is left outside of the skin at the ends of your incision. 1. The small skin tapes can be removed 7 days after surgery if they have not fallen off by that point. 2. You may keep the wound open to air as much as possible to promote healing after post-op day number 5 unless told otherwise by your doctor. 3. If you think the wound looks like it is becoming infected (redness or worsening drainage) and/or you are experiencing fever, chill or worsening back pain and muscle spasms, contact the office so that we may evaluate you as soon as possible. B. Complications are uncommon, but please contact us if you have any signs or symptoms of: 1. wound infection (fever higher than 102.5 degrees F, redness, separation of wound, drainage, or increasing pain from the incision) 2. blood clots in legs (pain, swelling, redness and warmth in legs) 3. urinary tract infection (fever higher than 102.5 degrees F, burning upon urination or increased frequency of urination) 4. nerve problems (inability to walk on your toes or heels, numbness, loss of bowel or bladder control) 5. any other symptoms that concern you C. Please call the office at if you have any concerns or questions about your operation or recovery. D. No smoking! Smoking drastically decreases the chance of a solid fusion. E. Do not take any anti-inflammatory medications (Indocin, Advil, Motrin, Aspirin, Naprosyn, etc.) as these may inhibit the chance of a solid fusion. Tylenol is okay to take for pain. MANAGING PAIN AFTER SPINAL SURGERY 1. Narcotic medication is intended for short-term use and will be provided for surgical pain. Surgical pain usually lasts for a period of 4-6 weeks. Narcotic medication includes Percocet, Vicodin, Darvocet, Tylenol #3 or Lortab. 2. Longer-term pain is more appropriately treated with non-narcotic medication such as Tylenol ES. 3. Muscle spasm is not appropriately treated with narcotics. Muscle relaxers such as Soma, Flexeril or Skelaxin can be used along with Tylenol ES. 4. Remember that we all live with some "aches and pains". This is not unusual or uncommon after an injury or as we get older. a. Back pain is expected and may include muscle spasms for 4 to 6 weeks after surgery. The pain should gradually improve. If the pain worsens for no apparent reason, please contact the office. b. Intermittent leg pain may also be experienced and should not be concerned about unless it worsens for no apparent reason. If so, please contact the office. 5. We will provide appropriate medication within the normal guidelines of their prescribed use. We will also be very cautious and aware of potential abuse and extended duration of patients' medication needs. a. Pain medications are for your comfort and to assist with sleep and rest so that the tissue can heal. They are not provided in order to return to normal activity and should not be used through the day. To do so or worsening pain at night can result from ongoing tissue damage and development of tolerance to the prescribed medicine. 6. Please allow 2-3 days to process refills. Prescriptions will not be mailed but must be picked up at the office. FOLLOW UP VISIT: Keep your scheduled follow-up appointment. Any questions, please call the office at . Pending Studies at Discharge: No Stand-Alone Forms: My [facility], Smoking Cessation Medications and DC Order Prescriptions: New oxycodone 5 mg tablet 5 mg PO Q6H PRN (Reason: pain, severe) Qty: 30 RF: 0 tramadol 50 mg tablet 50 mg PO Q6H PRN (Reason: pain, moderate) Qty: 30 RF: 0 Continued multivitamin [Daily Multi-Vitamin] Tablet 1 tab PO DAILY RF: 0 atorvastatin 10 mg Tablet 10 mg PO HS RF: 0 Discontinued ibuprofen 200 mg Tablet 800 mg PO Q6H PRN (Reason: Pain) RF: 0 Discharge Orders: Discharge Order (Routine); Ordered 11/20/21 Ordered By: Ghassan Erickson Admission Data Admit Date/Time: 11/18/21 15:07 Attending Provider: Ghassan Erickson Admit Provider: Ghassan Erickson Primary Care Provider: Inder Newell
--- NOTE | 2021-11-25 07:12 | Coding Query ---
BMI To promote full compliance with coding requirements relating to patient care, physician participation is requested in all cases of travel journalist uncertainty. Please assist us with the question(s) below: Please place an X within the parenthesis (x). If other, please document: BMI in excess of 33 was documented in this record for this patient. If the BMI is significant, please check the box that provides a more specific associated diagnosis: ( ) Overweight/Obese ( x) Obesity ( ) Morbid obesity ( ) Obesity Hypoventilation Syndrome (OHS) ( ) Heathy weight, not significant ( ) Underweight/Thin ( ) Other, please specify Thank you Lisbeth VILLA
== END 2021-11-20 12:39 | disposition home or self-care (01) | DRG 455 ==
LOC: ASU 10:34 → PACUINP 15:07 → 3E 19:46